=== PATIENT | female | born 1950 | race Caucasian/White ===

== ENCOUNTER 2023-07-26 11:19 | Outpatient (AMB) | payer MEDICARE, OTHER, SELFPAY ==
[2023-07-26 11:24] VITALS: BP 132/80; PULSE 73; O2SAT 97; BMI 25.7
--- NOTE | 2023-07-26 11:24 | HO.NEPHOV_ITS ---
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 She is 73 years of age and had end-stage renal disease secondary to hypertensive nephropathy. She has history of cardiomyopathy and dyslipidemia as well as prior subdural hematoma needing by hole craniotomy. She underwent a disease donor renal transplant on 09/07/2022. Induction was done using Campath and Solu-Medrol. She was on hemodialysis for 2 years prior to her transplant. Recipient CMV was negative/ EBV positive/BK positive. Donor was CMV positive, hepatitis C core antibody positive, toxoplasma positive. She had been on and a cover. She used to take Atovaquone until February of 2023. She is on Valcyte which is meant to be discontinued on 07 of September this year. She had a PRA of 0. She has been having some pain in the right flank for which she underwent imaging studies which were unrevealing as per the patient. She had taken Flexeril with improvement but has been having recurrence of the symptoms. She has an appointment to see pain management as well as orthopedic surgeons. She has no fever, chills, rigors, hematuria, dysuria, pedal edema, chest pain, shortness of breath, tremor, new skin rashes or any joint swellings. She is compliant with her medications. She has no history of any rejections. She has been having insomnia for which she has tried multiple medications with no major effect as per her. [facility] Medical History (Updated 07/24/23 @ 15:38 by Gabriela Oconnell MA) Disorder of SI (sacroiliac) joint Hypokalemia Hypertension GERD (gastroesophageal reflux disease) Diabetes mellitus Acute kidney injury Surgical History History of angioplasty Family History Father Hypertension Mother Heart disease Hypertension Social History (Updated 07/26/23 @ 11:33 by Gabriela Oconnell MA) Alcohol intake: current Patient Tobacco Use Status: Never used Tobacco Physical Exam Vital Signs: Last Vital Signs Pulse 73 07/26/23 11:24 BP 132/80 07/26/23 11:24 Pulse Ox 97 07/26/23 11:24 Oxygen Delivery Method Room Air 07/26/23 11:24 BMI result Body Mass Index 25.7 Const General: comfortable and no acute distress Orientation/consciousness: patient oriented x3 HEENT Head: Yes normocephalic Mouth: Normal oral and palatal mucosa present Eyes EOM: EOMs intact bilaterally Neck Neck: Yes supple Resp Auscultation: clear to auscultation bilaterally Cardio Jugular venous distension: no JVD Rate: regular rate GI Palpation (GI): Soft to palpation Auscultation: normal bowel sounds General: Yes no CVA tenderness Back/Spine/Pelvis Back: no CVA tenderness Skin General skin exam: no rashes or lesions noted Neuro General: patient oriented x3 and moves all extremities Extrem General: Yes no pedal edema Results Reviewed Nephrology Results: No Data to Display Assessment & Plan Assessment & Plan (1) Renal transplant recipient: Code(s): Z94.0 - Kidney transplant status Category: Surgical Plan Her graft function has been stable. Her last serum creatinine has been close to 1. Her DSA has been negative. Her Trugraf was [place]. Her urine protein creatini ne ratio was within normal limits. She had it transplant Doppler which did not show any renal artery stenosis. She is on Envarsus monotherapy. She does not have any side effects from it. She had history of BK viremia and her levels have been kept low. She had a CMV high-risk donor positivity with the recipient being negative, maintained on Valcyte 450 mg daily to continue until end of August. Her BK PCR has been improving. Her hepatitis-B PCR has been negative. Her last CMV and EBV PCR has been negative as well. Blood pressure is very well controlled on the current medication regimen. Has phosphorus , magnesium and calcium has been normal. She is on intake over which we plan to continue at least for a year. Her last hepatitis-B PCR and hepatitis C PCR was negative. She can continue Flexeril and follow-up with pain management and orthopedic surgeons. Follow-up lab work was ordered. I did not make any medication changes. Follow-up appointment given. Answered all questions Orders: Orders Blood Urea Nitrogen Today Z94.0 - Kidney transplant status Electrolytes Today Z94.0 - Kidney transplant status Calcium Today Z94.0 - Kidney transplant status Phosphorus Today Z94.0 - Kidney transplant status Aspartate Amino Transferase Today Z94.0 - Kidney transplant status Alanine Aminotransferase Today Z94.0 - Kidney transplant status Other Ref Test - Misc 1 Day Z94.0 - Kidney transplant status Complete Blood Count Auto Diff Today Z94.0 - Kidney transplant status Creatinine Today Z94.0 - Kidney transplant status Magnesium Today Z94.0 - Kidney transplant status Tacrolimus Prograf Today Z94.0 - Kidney transplant status Protein Creatinine Ratio, Ur Today Z94.0 - Kidney transplant status Other Ref Test - Misc Today Z94.0 - Kidney transplant status Medications: New cyclobenzaprine 5 mg PO BEDTIME 30 tabs 3RF 30 days Coding Level of Care Code New Pt Level 4 (20141) Diagnoses Renal transplant recipient Z94.0
== END 2023-07-26 12:06 | disposition home or self-care (01) ==
PROVIDERS: PCP Physician Assistant; Visit Provider Internal Medicine Nephrology
DX: Z94.0 Kidney transplant status (principal)
CPT/HCPCS: 99204

== ENCOUNTER 2023-10-02 11:42 | Outpatient (AMB) | payer MEDICARE, OTHER, SELFPAY ==
--- NOTE | 2023-10-02 12:06 | HO.NEPHOV_ITS ---
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 She has history of cardiomyopathy and dyslipidemia as well as prior subdural hematoma needing by hole craniotomy. She underwent a disease donor renal transplant on 09/07/2022. Induction was done using Campath and Solu-Medrol. She was on hemodialysis for 2 years prior to her transplant. Recipient CMV was negative/ EBV positive. Donor was CMV positive, hepatitis C core antibody positive, toxoplasma positive. She had been on and a cover. She used to take Atovaquone until February of 2023. She is on Valcyte which is meant to be discontinued on 07 of September this year. She had a PRA of 0. She has been having some pain in the right flank for which she underwent imaging studies which were unrevealing as per the patient. She had taken Flexeril with improvement but has been having recurrence of the symptoms. She has an appointment to see pain management as well as orthopedic surgeons. She has no fever, chills, rigors, hematuria, dysuria, pedal edema, chest pain, shortness of breath, tremor, new skin rashes or any joint swellings. She is compliant with her medications. She has no history of any rejections. She has BK virus in the urine [facility] Medical History (Updated 10/02/23 @ 12:29 by Holland Carmen MD) Disorder of SI (sacroiliac) joint Hypokalemia Hypertension GERD (gastroesophageal reflux disease) Diabetes mellitus Acute kidney injury Surgical History History of angioplasty Family History Father Hypertension Mother Heart disease Hypertension Social History Alcohol intake: current Patient Tobacco Use Status: Never used Tobacco Review of Systems Const All systems reviewed & are unremarkable except as noted in HPI and below Physical Exam Vital Signs: Last Vital Signs BP 110/68 10/02/23 12:08 BMI result Body Mass Index 25.6 Const General: comfortable and no acute distress Orientation/consciousness: patient oriented x3 HEENT Head: Yes normocephalic Mouth: Normal oral and palatal mucosa present Eyes EOM: EOMs intact bilaterally Neck Neck: Yes supple Resp Auscultation: clear to auscultation bilaterally Cardio Jugular venous distension: no JVD Rate: regular rate GI Palpation (GI): Soft to palpation Auscultation: normal bowel sounds General: Yes no CVA tenderness Back/Spine/Pelvis Back: no CVA tenderness Skin General skin exam: no rashes or lesions noted Neuro General: patient oriented x3 and moves all extremities Extrem General: Yes no pedal edema Results Reviewed Nephrology Results: No Data to Display Assessment & Plan Assessment & Plan (1) Renal transplant recipient: Code(s): Z94.0 - Kidney transplant status Category: Surgical (2) Hypertension: Code(s): I10 - Essential (primary) hypertension Category: Medical Qualifiers: Hypertension type: primary hypertension Qualified Code(s): I10 - Essential (primary) hypertension (3) BK viremia: Code(s): B34.8 - Other viral infections of unspecified site Category: Medical Plan Her graft function has been stable. Her last serum creatinine has been close to 1. Her DSA has been negative. Her Trugraf was [place]. Her urine protein creatinine ratio was within normal limits. She had it transplant Doppler which did not show any renal artery stenosis. She is on Envarsus monotherapy. She does not have any side effects from it. She had history of BK viremia and her levels have been kept low. I reduced her Envarsus to 3.5 mg daily. She had a CMV high-risk donor positivity with the recipient being negative, maintained on Valcyte 450 mg daily to continue until end of August. Her BK PCR had been improving. Her hepatitis-B PCR has been negative. Her last CMV and EBV PCR has been negative as well. Blood pressure is very well controlled on the current medication regimen. Has phosphorus , magnesium and calcium has been normal. Her last hepatitis-B PCR and hepatitis C PCR was negative. Follow-up lab work was ordered. I did not make any other medication changes. Follow-up appointment given. Answered all questions Orders: Orders Complete Blood Count Auto Diff 2 Months B34.8 - Other viral infections of unspecified site, I10 - Essential (primary) hypertension, Z94.0 - Kidney transplant status Electrolytes 2 Months B34.8 - Other viral infections of unspecified site, I10 - Essential (primary) hypertension, Z94.0 - Kidney transplant status Calcium 2 Months B34.8 - Other viral infections of unspecified site, I10 - Essential (primary) hypertension, Z94.0 - Kidney transplant status Magnesium 2 Months B34.8 - Other viral infections of unspecified site, I10 - Essential (primary) hypertension, Z94.0 - Kidney transplant status Tacrolimus Prograf 2 Months B34.8 - Other viral infections of unspecified site, I10 - Essential (primary) hypertension, Z94.0 - Kidney transplant status Creatinine 2 Months B34.8 - Other viral infections of unspecified site, I10 - Essential (primary) hypertension, Z94.0 - Kidney transplant status Blood Urea Nitrogen 2 Months B34.8 - Other viral infections of unspecified site, I10 - Essential (primary) hypertension, Z94.0 - Kidney transplant status Phosphorus 2 Months B34.8 - Other viral infections of unspecified site, I10 - Essential (primary) hypertension, Z94.0 - Kidney transplant status Other Ref Test - Misc 2 Months B34.8 - Other viral infections of unspecified site, I10 - Essential (primary) hypertension, Z94.0 - Kidney transplant status Tacrolimus Prograf 1 Month B34.8 - Other viral infections of unspecified site, I10 - Essential (primary) hypertension, Z94.0 - Kidney transplant status Coding Level of Care Code Est Pt Level 4 (53578) Diagnoses Renal transplant recipient Z94.0 Primary hypertension I10 Hypertension type: primary hypertension BK viremia B34.8
[2023-10-02 12:08] VITALS: BP 110/68; BMI 25.6
== END 2023-10-02 12:31 | disposition home or self-care (01) ==
PROVIDERS: PCP Physician Assistant; Visit Provider Internal Medicine Nephrology
DX: Z94.0 Kidney transplant status (principal); I10 Essential (primary) hypertension; B34.8 Other viral infections of unspecified site
CPT/HCPCS: 99214

== ENCOUNTER 2023-11-06 11:44 | Outpatient (REF) | payer MEDICARE, OTHER, SELFPAY | END 2023-11-06 11:45 | disposition home or self-care (01) | LOC: HO.HKASLDS 11:44 | PROVIDERS: Visit Provider Internal Medicine Nephrology | DX: I10 Essential (primary) hypertension (principal); B34.8 Other viral infections of unspecified site; Z94.0 Kidney transplant status | CPT/HCPCS: 36415; 80197 ==

== ENCOUNTER 2023-12-04 14:40 | Outpatient (REF) | payer MEDICARE, OTHER, SELFPAY ==
[2023-12-04 18:06] LABS: MANUAL DIFF FLAG NO
[2023-12-04 18:39] LABS: Basophils Percent Auto 0.4 % (0-2); Eosinophils Absolute Auto 0.1 X10*3/uL (0.0-0.4); Eosinophils Percent Auto 1.9 % (0-4); Hematocrit 31.6 % (37.0-47.0); Hemoglobin 10.4 g/dl (12.0-16.0); Imm Gran Abs Auto 0.01 X10*3/uL (0.00-0.03); Imm Gran Pct Auto 0.2 % (0.0-0.4); Lymphocytes Absolute Auto 1.2 X10*3/uL (1.2-4.9); Lymphocytes Percent Auto 25.1 % (20-40); Mean Corpuscular HGB Conc 32.9 g/dl (31.0-35.0); Mean Corpuscular Hemoglobin 30.6 pg (27.0-33.0); Mean Corpuscular Volume 92.9 fL (80.0-98.0); Mean Platelet Volume 9.6 fL (9.4-12.3); Monocytes Absolute Auto 0.6 X10*3/uL (0.1-1.2); Monocytes Percent Auto 12.7 % (2-11); Neutrophils Absolute Auto 2.8 x10*3/uL (2.0-8.3); Neutrophils Percent Auto 59.7 % (45-73); Platelet Count 208 X10*3/uL (160-400); Red Cell Distribution Width 13.4 % (11.0-16.0); White Blood Count 4.7 X10*3/uL (4.8-10.8)
[2023-12-04 18:57] LABS: Anion Gap 8 (12-20); Blood Urea Nitrogen 24 mg/dL (9-16); Calcium 10.6 mg/dL (8.4-10.2); Carbon Dioxide 24 mmol/L (22-29); Chloride 109 mmol/L (96-108); Estimated Glomerular Filt Rate > 60; Magnesium 2.1 mg/dL (1.6-2.6); Phosphorus 2.5 mg/dL (2.7-4.5); Potassium 4.2 mmol/L (3.3-5.1); Sodium 137 mmol/L (135-145)
[2023-12-05 10:43] LABS: Tacrolimus Prograf 3.4 mcg/L
[2023-12-07 19:34] LABS: BK Virus DNA QL Urine Detected (Not Detected)
== END 2023-12-04 14:41 | disposition home or self-care (01) ==
LOC: HO.HKASLDS 14:40
PROVIDERS: Visit Provider Internal Medicine Nephrology
DX: I10 Essential (primary) hypertension (principal); B34.8 Other viral infections of unspecified site; Z94.0 Kidney transplant status
CPT/HCPCS: 36415; 80051; 80197; 82310; 82565; 83735; 84100; 84520; 85025; 87798

== ENCOUNTER 2023-12-18 14:35 | Outpatient (AMB) | payer MEDICARE, OTHER, SELFPAY ==
--- NOTE | 2023-12-18 14:51 | HO.NEPHOV_ITS ---
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 She has history of cardiomyopathy and dyslipidemia as well as prior subdural hematoma needing by hole craniotomy. She underwent a disease donor renal transplant on 09/07/2022. Induction was done using Campath and Solu-Medrol. She was on hemodialysis for 2 years prior to her transplant. Recipient CMV was negative/ EBV positive. Donor was CMV positive, hepatitis C core antibody positive, toxoplasma positive. She had been on and a cover. She used to take Atovaquone until February of 2023. She is on Valcyte which is meant to be discontinued on August. She had a PRA of 0. She has no fever, chills, rigors, hematuria, dysuria, pedal edema, chest pain, shortness of breath, tremor, new skin rashes or any joint swellings. She is compliant with her medications. She has no history of any rejections. She has BK virus in the urine [facility] Medical History (Updated 10/02/23 @ 12:29 by Holland Carmen MD) Disorder of SI (sacroiliac) joint Hypokalemia Hypertension GERD (gastroesophageal reflux disease) Diabetes mellitus Acute kidney injury Surgical History History of angioplasty Family History Father Hypertension Mother Heart disease Hypertension Social History Alcohol intake: current Patient Tobacco Use Status: Never used Tobacco Review of Systems Const All systems reviewed & are unremarkable except as noted in HPI and below Physical Exam Vital Signs: Last Vital Signs Pulse 59 12/18/23 14:52 BP 184/80 H 12/18/23 14:52 Pulse Ox 97 12/18/23 14:52 Oxygen Delivery Method Room Air 12/18/23 14:52 BMI result Body Mass Index 25.7 Results Reviewed Nephrology Results: Hgb 10.4 g/dl (12.0-16.0) L 12/04/23 WBC 4.7 X10*3/uL (4.8-10.8) L 12/04/23 Plt Count 208 X10*3/uL (160-400) 12/04/23 Sodium 137 mmol/L (135-145) 12/04/23 Potassium 4.2 mmol/L (3.3-5.1) 12/04/23 Chloride 109 mmol/L (96-108) H 12/04/23 Carbon Dioxide 24 mmol/L (22-29) 12/04/23 BUN 24 mg/dL (9-16) H 12/04/23 Creatinine 0.88 mg/dL (0.5-1.4) 12/04/23 Calcium 10.6 mg/dL (8.4-10.2) H 12/04/23 Phosphorus 2.5 mg/dL (2.7-4.5) L 12/04/23 Assessment & Plan Assessment & Plan (1) Renal transplant recipient: Code(s): Z94.0 - Kidney transplant status Category: Surgical (2) BK viremia: Code(s): B34.8 - Other viral infections of unspecified site Category: Medical (3) Hypertension: Code(s): I10 - Essential (primary) hypertension Category: Medical Qualifiers: Hypertension type: primary hypertension Qualified Code(s): I10 - Essential (primary) hypertension Plan Her graft function has been stable. Her last serum creatinine has been close to 1. Her DSA has been negative. Her Trugraf was [place]. Her urine protein creatinine ratio was within normal limits. She had it transplant Doppler which did not show any renal artery stenosis. She is on Envarsus monotherapy. She does not have any side effects from it. She had history of BK viremia and her levels have been kept low. I increased her Envarsus to 4 mg daily. Repeat levels ordered for next week. She had a CMV high-risk donor positivity with the recipient being negative, maintained on Valcyte 450 mg daily to continue until end of August. Her BK PCR had been improving. Her hepatitis-B PCR has been nega tive. Her last CMV and EBV PCR has been negative as well. Blood pressure is very well controlled on the current medication regimen at home. She is off calcium supplements. Her last hepatitis-B PCR and hepatitis C PCR was negative. Follow-up lab work was ordered. I did not make any other medication changes. Follow-up appointment given. Answered all questions Orders: Orders Tacrolimus Prograf 1 Week B34.8 - Other viral infections of unspecified site, I10 - Essential (primary) hypertension, Z94.0 - Kidney transplant status Creatinine 2 Months Z94.0 - Kidney transplant status Blood Urea Nitrogen 2 Months Z94.0 - Kidney transplant status Electrolytes 2 Months Z94.0 - Kidney transplant status Calcium 2 Months Z94.0 - Kidney transplant status Other Ref Test - Misc 2 Months B34.8 - Other viral infections of unspecified site, Z94.0 - Kidney transplant status Tacrolimus Prograf 2 Months B34.8 - Other viral infections of unspecified site, I10 - Essential (primary) hypertension, Z94.0 - Kidney transplant status Complete Blood Count Auto Diff 2 Months B34.8 - Other viral infections of unsp ecified site, I10 - Essential (primary) hypertension, Z94.0 - Kidney transplant status Medications: New doxazosin 4 mg PO DAILY 90 tabs 3RF Changed From tacrolimus XR (Envarsus XR) 2 mg PO DAILY To tacrolimus XR (Envarsus XR) 2 mg (2 x 1 mg) PO DAILY 90 days 180 tabs 3RF From tacrolimus XR (Envarsus XR) 1.5 mg PO DAILY To tacrolimus XR (Envarsus XR) 1.5 mg (2 x 0.75 mg) PO DAILY 90 days 180 tabs 3RF From losartan 50 mg PO BID To losartan 50 mg PO BID 90 days 180 tabs 3RF Coding Level of Care Code Est Pt Level 4 (75205) Diagnoses Renal transplant recipient Z94.0 BK viremia B34.8 Primary hypertension I10 Hypertension type: primary hypertension
[2023-12-18 14:52] VITALS: BP 184/80; PULSE 59; O2SAT 97; BMI 25.7
== END 2023-12-18 15:22 | disposition home or self-care (01) ==
PROVIDERS: PCP Physician Assistant; Visit Provider Internal Medicine Nephrology
DX: Z94.0 Kidney transplant status (principal); B34.8 Other viral infections of unspecified site; I10 Essential (primary) hypertension
CPT/HCPCS: 99214

== ENCOUNTER → 2023-12-18 14:35 | Outpatient (BNVA) | payer MEDICARE, OTHER, SELFPAY | PROVIDERS: PCP Physician Assistant; Visit Provider Internal Medicine Nephrology | DX: I10 Essential (primary) hypertension (principal); B34.8 Other viral infections of unspecified site; Z94.0 Kidney transplant status | CPT/HCPCS: 99212 ==

== ENCOUNTER 2023-12-27 10:47 | Outpatient (REF) | payer MEDICARE, OTHER, SELFPAY | END 2023-12-27 10:48 | disposition home or self-care (01) | LOC: HO.HKASLDS 10:47 | PROVIDERS: Visit Provider Internal Medicine Nephrology | DX: I10 Essential (primary) hypertension (principal); B34.8 Other viral infections of unspecified site; Z94.0 Kidney transplant status | CPT/HCPCS: 36415; 80197 ==

== ENCOUNTER 2024-04-22 10:36 | Outpatient (AMB) | payer MEDICARE, OTHER, SELFPAY ==
--- NOTE | 2024-04-22 11:02 | HO.NEPHOV_ITS ---
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 She has history of cardiomyopathy and dyslipidemia as well as prior subdural hematoma needing by hole craniotomy. She underwent a disease donor renal transplant on 09/07/2022. Induction was done using Campath and Solu-Medrol. She was on hemodialysis for 2 years prior to her transplant. Recipient CMV was negative/ EBV positive. Donor was CMV positive, hepatitis C core antibody positive, toxoplasma positive. She had been on and a cover. She used to take Atovaquone until February of 2023. She is on Valcyte which is meant to be discontinued on August. She had a PRA of 0. She has no fever, chills, rigors, hematuria, dysuria, pedal edema, chest pain, shortness of breath, tremor, new skin rashes or any joint swellings. She is compliant with her medications. She has no history of any rejections. She has BK virus in the urine [facility] Medical History (Updated 10/02/23 @ 12:29 by Holland Carmen MD) Disorder of SI (sacroiliac) joint Hypokalemia Hypertension GERD (gastroesophageal reflux disease) Diabetes mellitus Acute kidney injury Surgical History History of angioplasty Family History Father Hypertension Mother Heart disease Hypertension Social History Alcohol intake: current Patient Tobacco Use Status: Never used Tobacco Review of Systems Const All systems reviewed & are unremarkable except as noted in HPI and below Physical Exam Vital Signs: Last Vital Signs BP 160/84 H 04/22/24 11:05 BMI result Body Mass Index 27.9 Const General: comfortable and no acute distress Orientation/consciousness: patient oriented x3 HEENT Head: Yes normocephalic Mouth: Normal oral and palatal mucosa present Eyes EOM: EOMs intact bilaterally Neck Neck: Yes supple Resp Auscultation: clear to auscultation bilaterally Cardio Jugular venous distension: no JVD Rate: regular rate GI Palpation (GI): Soft to palpation Auscultation: normal bowel sounds General: Yes no CVA tenderness Back/Spine/Pelvis Back: no CVA tenderness Skin General skin exam: no rashes or lesions noted Neuro General: patient oriented x3 and moves all extremities Extrem General: Yes no pedal edema Results Reviewed Nephrology Results: Hgb 10.5 g/dl (12.0-16.0) L 04/16/24 WBC 4.8 X10*3/uL (4.8-10.8) 04/16/24 Plt Count 170 X10*3/uL (160-400) 04/16/24 Sodium 136 mmol/L (135-145) 04/16/24 Potassium 4.5 mmol/L (3.3-5.1) 04/16/24 Chloride 112 mmol/L (96-108) H 04/16/24 Carbon Dioxide 22 mmol/L (22-29) 04/16/24 BUN 27 mg/dL (9-16) H 04/16/24 Creatinine 0.89 mg/dL (0.5-1.4) 04/16/24 Calcium 10.4 mg/dL (8.4-10.2) H 04/16/24 Phosphorus 2.5 mg/dL (2.7-4.5) L 12/04/23 Assessment & Plan Assessment & Plan (1) Renal transplant recipient: Code(s): Z94.0 - Kidney transplant status Category: Surgical (2) BK viremia: Code(s): B34.8 - Other viral infections of unspecified site Category: Medical (3) Hypertension: Code(s): I10 - Essential (primary) hypertension Category: Medical Qualifiers: Hypertension type: primary hypertension Qualified Code(s): I10 - Essential (primary) hypertension Plan Her graft function has been stable. Her last serum creatinine has been close to 0.8. Her DSA has been negative. Her Trugraf was [place]. Her urine protein creatinine ratio was within normal limits. She had it transplant Doppler which did not show any renal artery stenosis. She is on Envarsus monotherapy. She does not have any side effects from it. She had history of BK viremia and her levels have been kept low. I increased her Envarsus to 4 mg daily. She had a CMV high-risk donor positivity with the recipient being negative, maintained on Valcyte 450 mg daily to continue until end of August. Her BK PCR had been improving. Her hepatitis-B PCR has been negative. Her last CMV and EBV PCR has been negative as well. Blood pressure is very well controlled on the current medication regimen at home. She is off calcium supplements. Her last hepatitis- B PCR and hepatitis C PCR was negative. Follow-up lab work was ordered. I did not make any other medication changes. Follow-up appointment given. Answered all questions Orders: Orders Other Ref Test - Misc 3 Months B34.8 - Other viral infections of unspecified site, I10 - Essential (primary) hypertension, Z94.0 - Kidney transplant status Tacrolimus Prograf 3 Months B34.8 - Other viral infections of unspecified site, I10 - Essential (primary) hypertension, Z94.0 - Kidney transplant status Electrolytes 3 Months B34.8 - Other viral infections of unspecified site, I10 - Essential (primary) hypertension, Z94.0 - Kidney transplant status Calcium 3 Months B34.8 - Other viral infections of unspecified site, I10 - Essential (primary) hypertension, Z94.0 - Kidney transplant status Magnesium 3 Months B34.8 - Other viral infections of unspecified site, I10 - Essential (primary) hypertension, Z94.0 - Kidney transplant status Other Ref Test - Misc 2 Months B34.8 - Other viral infections of unspecified site, I10 - Essential (primary) hypertension, Z94.0 - Kidney transplant status Creatinine 3 Months B34.8 - Other viral infections of unspecified site, I10 - Essential (primary) hypertension, Z94.0 - Kidney transplant status Blood Urea Nitrogen 3 Months B34.8 - Other viral infections of unspecified site, I10 - Essential (primary) hypertension, Z94.0 - Kidney transplant status Phosphorus 3 Months B34.8 - Other viral infections of unspecified site, I10 - Essential (primary) hypertension, Z94.0 - Kidney transplant status Coding Level of Care Code Est Pt Level 4 (79336) Diagnoses Renal transplant recipient Z94.0 BK viremia B34.8 Primary hypertension I10 Hypertension type: primary hypertension
[2024-04-22 11:05] VITALS: BP 160/84; BMI 27.9
--- OUTSIDE RECORDS SUMMARY | 2024-04-22 11:49 | XMS_ITS | Clinical Summary ---
Author Organization [facility] Address [address] [place] [address] Care Team Providers Care Bending Machine Set Up Operator Name Role Phone Oneida Marroquin MD Primary Care Provider [phone] Encounters Date Type Department Care Team Description 02/21/2024 8:15 AM EST - 02/21/2024 8:30 AM EST Surgery [facility] Eye Surgery [place] [phone] Richard Willis MD CAT W/IOL LENSX ORA 02/21/2024 6:46 AM EST - 02/21/2024 11:59 PM EST Hospital Encounter [place] [id number] Richard Willis MD Discharge Disposition: Home or Self Care 02/20/2024 Travel 01/31/2024 9:30 AM EST - 01/31/2024 9:45 AM EST Surgery [facility] Surgery [place] [phone] Richard Willis MD CAT W/IOL LENSX ORA 01/31/2024 7:54 AM EST - 01/31/2024 11:59 PM EST Hospital Encounter [place] [id number] Richard Willis MD Discharge Disposition: Home or Self Care 01/30/2024 Travel from Last 3 Months Social History Tobacco Use Types Packs/Day Years Used Date Smoking Tobacco: Never Assessed Sex and Gender Information Value Date Recorded Sex Assigned at Female 01/31/2024 7:55 AM EST Gender Identity Female 01/31/2024 7:55 AM EST Sexual Orientation Heterosexual (straight) 01/30 7:55 AM EST Plan of Treatment Health Maintenance Due Date Last Done Comments Hepatitis C Virus Screening 1950 DTaP/Tdap/Td Vaccines (1 - Tdap) 1969 Pneumococcal Vaccines 50+ (1 of 2 - PCV) 1969 Hepatitis B Vaccines (1 of 3 - Risk Dialysis 4-dose series) 1970 Mammogram 1990 Colonoscopy 1995 Zoster (Shingles) Vaccine (1 of 2) 01/26/2000 DXA Bone Density (Females,Ag es 65 and older) 2015 Influenza Vaccine 10/11/2023 12/03/2016, , 02/04/2014 COVID-19 Vaccine (2023-2 5 season) 2023 12/27/2021, 08/13/2021, 12/28/2020, Additional history exists RSV Vaccine 60 years and old er and Patients (1 - 1-dose 75+ series) 2025 Medical Devices Implanted Type Area Wind Turbine Performance Engineer Device Identifier Shelf Expiration Date Model / Serial / Lot [id number] Lens Iol +24.5 Luis Alberto Mod C 13mm 6mm Posterior Chamber 1 Pc - [id number] Implanted:Qty: 1 on 01/31/2024 by Richard Willis MD at [facility] [place], [place] [employer] [id number] / [id number] / [id number] Lens Iol +23.5 Luis Alberto Mod C 13mm 6mm Posterior Chamber 1 Pc - [id number] Implanted:Qty: 1 on 02/21/2024 by Richard Willis MD at [facility] [place], [place] [employer] [id number] / [id number] / Procedures Procedure Name Priority Date/Time Associated Diagnosis Comments TN XCAPSL CTRC RMVL INSJ IO LENS PROSTH W/O ECP 02/21/2024 8:15 AM EST Nuclear sclerotic cataract of right eye HX PHYSICIAN ORDER 02/21/2024 TN XCAPSL CTRC RMVL INSJ IO LENS PROSTH W/O ECP 01/31/2024 9:30 AM EST Nuclear sclerotic cataract of left eye HX PHYSICIAN ORDER 01/31/2024 from Last 3 Months Results * Physician Order (02/21/2024) Only the most recent of2 resultswithin the time period is included. Narrative 02/21/2024 Ordered by an unspecified provider. Generic Provider HX AMB PROCEDURES from Last 3 Months Care Teams Bending Machine Set Up Operator Relationship Specialty Start Date End Date Oneida Marroquin MD [address] [place] [id number] PCP - General Family Medicine 02/22/23
--- OUTSIDE RECORDS SUMMARY | 2024-04-22 11:49 | XMS_ITS | Encounter Summary ---
Author Organization [facility] Address [address] [facility] [address] [place] [address] Phone Care Team Providers Care Embossing Unit Operator Name Role Phone Stephanie Morales PA-C Primary Care Provider + Reason for Visit * Reason Comments Med Refill Encounter Details Date Type Department Care Team (Late st Contact Info) Description 06/05/2022 Refill [facility] [address] [place] [id number] Holland Carmen MD Social History Tobacco Use Types Packs/Day Years Used Date Smoking Tobacco: Never Smokeless Tobacco: Never Alcohol Use Standard Drinks/Week Comments Yes 0 (1 standard drink = 0.6 oz pure alcohol) Alcoholic Drinks/day: 1-2 drinks per day Comments Unknown Sex and Gender Information Value Date Recorded Sex Assigned at Not on file Legal Sex Female 5:00 PM EST Gender Identity Not on file Sexual Orientation Not on file documented as of this encounter Plan of Treatment Not on file documented as of this encounter Visit Diagnoses Not on filedocumented in this encounter Care Teams Embossing Unit Operator Relationship Specialty Start Date End Date Stephanie Morales PA-C [address] [place] [id number] PCP - General Physician Frame Aligner 06/13/23 documented as of this encounter
--- OUTSIDE RECORDS SUMMARY | 2024-04-22 11:49 | XMS_ITS | Encounter Summary ---
Author Organization [facility] Address [address] [address] [facility] [address] [place] [address] Phone Care Team Providers Care Bi Architect Name Role Phone Stephanie Morales PA-C Primary Care Provider + Reason for Visit * Reason Comments Med Refill Encounter Details Date Type Department Care Team (Late st Contact Info) Description 06/19/2022 Refill [facility] [address] [place] [phone] Holland Carmen MD Social History Tobacco Use [...] on filedocumented in this encounter Care Teams Bi Architect Relationship Specialty Start Date End Date Stephanie Morales PA-C [address] [place] [id number] PCP - General Physician Employee Relations Manager 06/13/23 documented as of this encounter
--- OUTSIDE RECORDS SUMMARY | 2024-04-22 11:49 | XMS_ITS | Continuity of Care Document ---
Author Organization [facility] Address [address] [place] [address] Phone Care Team Providers Care Vice President Digital Strategist Name Role Phone Richard Willis MD Unavailable Unavailable Allergies, Adverse Reactions, Alerts Substance Reaction Status Criticality codeine Active No Information trimethoprim Active No Information sulfamethoxazole Active No Informat ion Medications Medication Instructions Dosage Effective Dates (start - stop) Status Comments ketorolac 0.5 % eye drops instill 1 drop by ophthalmic route 2 times every day into operative eye begin 3 days prior to surgery - Active prednisolone acetate 1 % eye drops,suspension instill 1 drop by ophthalmic route 2 times every day into operative eye begin 3 days prior to surgery - Active moxifloxacin 0.5 % eye drops instill 1 drop by ophthalmic route 4 times every day into operative eye, begin 3 day prior to surgery - Active Envarsus XR 1 mg tablet,extended release - Active atorvastatin 40 mg tablet - Active zolpidem 10 mg tablet TAKE 1 TABLET BY MOUTH AT BEDTIME NEEDED FOR INSOMNIA - Active Envarsus XR 0.75 mg tablet,extended release - Active doxazosin 4 mg tablet - Acti ve losartan 50 mg tablet - Acti ve tizanidine 4 mg tablet - Act carlos folic acid 400 mcg tablet TAKE 1 TABLET BY MOUTH EVERY DAY - Active levetiracetam 750 mg tablet - Active magnesium oxide 400 mg (241.3 mg magnesium) tablet - Active cinacalcet 30 mg tablet TAKE 1 TABLET BY MOUTH 1 TIME EACH DAY. - Active acetaminophen 500 mg tablet TAKE 1 TABLET BY MOUTH EVERY 6 HOURS NEEDED FOR PAIN - Active chlorhexidine gluconate 0.12 % mouthwash RINSE WITH 15 ML, HOLD X 30 SECONDS AND EXPECTORATE TWICE DAILY X 4 DAYS. START DAY AFTER SURGERY - Active entecavir 0.5 mg tablet - Ac tive valganciclovir 450 mg tablet - Active cyclobenzaprine 5 mg tablet - Active lorazepam 0.5 mg tablet TAKE 1 TABLET BY MOUTH AT NIGHT NEEDED ANXIETY - Active zolpidem 5 mg tablet TAKE 1 TABLET BY MOUTH EVERY DAY AT BEDTIME NEEDED FOR SLEEP - Active cetirizine 5 mg tablet - Act carlos pramipexole 0.25 mg tablet - Active furosemide 20 mg tablet TAKE 1 TABLET (2 0 MG TOTAL) BY MOUTH ONE TIME EACH DAY - Active carvedilol 6.25 mg tablet PLEASE SEE ATTACHED FOR DETAILED DIRECTIONS - Active Procedures Procedure Date [employer] Fee IOL Master Calculation RT Post Op Visit [employer] Fee Ophthalmic IOL Master SCODI--Retina GIS APPLICATION DEVELOPER Moderate MDM Advance Directives Directive Yes / No Effective Date File Name No Information Encounters Encounter Description Practice Location Reason(s) For Visit Diagnoses Date Provider Providers Copied on Encounter [facility], [address], [place], [address], [place] tel:[phone] [place] No Information 4 Alba Ramos. [address] [place], [place], [id number] , . tel: [phone] [facility], [address] [place] [address], [facility], tel: [phone] [place] No Information 4 Alba Ramos. [address] [place] [address], [id number] , . tel: [phone] Referring Provider: James Moreira OD E, [address] [place] [address], [address]. tel:[phone] [facility], [address] [place] [address], [facility], tel:[phone] [place] s/p PCIOL OS (chief complaint) Combined forms of age-related cataract, right eyePseudophakia of left eyeRegular astigmatism, right eye 4 Alba Ramos. [address] [place] [address], [id number] , . tel: [phone] Referring Provider: Richard Willis, [address] [place] [address], [address] . tel:[phone] [facility], [address] [place] [address], [facility], tel:[phone] [place] No Information 4 Alba Ramos. [address] [place] [address], [id number] , . tel: [phone] Referring Provider: James Moreira OD E, [address] [place] [address], [address]. tel:[phone] GIS APPLICATION DEVELOPER Moderate MDM [facility], [address] [place] [address], [facility], tel:[phone] [place] blurry vision (chief complaint) Combined forms of age-related cataract, bilateralHypertens carlos retinopathy, bilateralRegular astigmatism, bilateral 4 Alba Ramos. [address] [place] [address], [id number] , . tel: [phone] Referring Provider: Richard Willis, [address] [facility], [place], [address] . tel:[phone] Family History Family Member Type Diagnosis Age At Onset Problem Family history of Arthritis Payers Payer name Insurance type Covered constitution party ID Authoriza tion(s) No Information Social History Type Description Quantity Date Captured Comments Alcohol Use Details Unknown Caffeine Use Details Unknown Tobacco Use Status No Information Smoking Status No Information Sex Female Chief Complaint And Reason For Visit No Information Reason For Referral Reason For Referral No Information History Of Present Illness Encounter Date Complaint History Of Prese nt Illness s/p PCIOL OS The 74 year old patient presents for evaluation of s/p PCIOL OS. Pt reports he is doing well, denies any complaints or concerns regarding OS. Pt denies any pain, states VA OS is improved. Pt using all PO gtts as directed.Pt would like to continue tx OD, will begin pre-op gtts as directed. Pt VA OD could not be improved further with a refraction. blurry vision The 73 year old patient presents for evaluation of blurry vision in the right eye and left eye. Pt referred by Dr. Moreira who was unable to improve pt VA OU further with a refraction. It occurs all the time. The onset was gradual. It affects both near and far vision. The symptom is constant. The condition is significant. Pt reports trouble seeing street signs, poor night V, glares/halos, and hazy/blurred V. Pt having difficulty driving at night. Pt is not using any gtts - denies any pain or discomfort at this time. Functional Status Date Functional Assessmen t No Information Instructions Date Instruction Additional Infor mation Impression/Plan Related to Combi elton forms of age-related cataract, right eye Impression/Plan Related to Regul ar astigmatism, right eye Impression/Plan Related to Pseud ophakia of left eye Impression/Plan Related to Combi elton forms of age-related cataract, bilateral Impression/Plan Related to Regul ar astigmatism, bilateral Impression/Plan Related to Hyper tensive retinopathy, bilateral Assessments Type Assessment Date No Information Patient Care Teams Name Effective Dates (start - stop) Status Members No Information
--- OUTSIDE RECORDS SUMMARY | 2024-04-22 11:49 | XMS_ITS | Clinical Summary ---
Author Organization [facility] Address [address] [place] [address] Phone Care Team Providers Care E Commerce Strategist Name Role Phone Oneida Marroquin MD Primary Care Provider [phone] Allergies Active Allergy Reactions Criticality Noted Date Comments Codeine 11/24/2020 Sulfamethoxazole-Trimethoprim 2020 Medications aspirin 81 mg EC tablet Take 1 Tablet by mouth daily. Active atorvastatin (LIPITOR) 40 mg tablet Take 1 Tablet by mouth daily. Active atovaquone (MEPRON) 750 mg/5 mL suspension Take 10 mL by mouth daily. Active cetirizine (ZyrTEC) 5 mg chewable tablet Take 1 Tablet by mouth. 03/28/2023 Active cholecalciferol (VITAMIN D-3) 25 mcg (1,000 unit) tablet Take 2 Tablets by mouth daily. Active cinacalcet (SENSIPAR) 30 mg tablet Take 1 Tablet by mouth. 02/21/2023 Active cyclobenzaprine (FLEXERIL) 5 mg tablet Take 1 Tablet by mouth. 05/09/2023 05/08/19 Active entecavir (BARACLUDE) 0.5 mg tablet Take 1 Tablet by mouth every morning. Active levETIRAcetam (KEPPRA) 750 mg tablet Take 1 Tablet by mouth 2 times daily. Active losartan (COZAAR) 100 mg tablet daily. 12/16/2022 Active mirtazapine (REMERON) 7.5 mg tablet Take 1 Tablet by mouth daily. Active tacrolimus (Envarsus XR) 0.75 mg extended release tablet Take 1 Tablet by mouth every morning. Active tiZANidine (ZANAFLEX) 4 mg capsule Take 1 Capsule by mouth as needed. Active valGANciclovir (VALCYTE) 450 mg tablet Take 1 Tablet by mouth daily. Active magnesium oxide (MAG-OX) 400 mg (241.3 elemental magnesium) tablet Take 400 mg by mouth. 03/28/2023 03/27/19 25 Active Problems Problem Noted Date Diagnosed Date Cardiomyopathy 03/02/2022 Overview (02/18/2024): - See echo under NSTEMI section Last Assessment & Plan: Patient is euvolemic on exam. Unclear if she will have significant resolution of her LV hypertrophy even after renal transplant but her EF has been normal and she has no heart failure symptoms. Continue current Lasix every other day. See further medication recommendations on her hypertension section. Non-ST elevation AR (NSTEMI) 03/02/2022 Overview (02/18/2024): - I met her in consultation in the hospital in October into early November 2021- she presented with hypoxic respiratory failure ultimately secondary to COVID-19 pneumonia - In the midst of all this, she had high-sensitivity troponins checked and trended and there was an acute rise going from 248 [id number] down to 832 with flat CK but mildly elevated MB fraction; this was also associated with deep T wave inversions in the anterolateral leads making acute coronary syndrome a possibility - An echocardiogram was performed (I have independently reviewed images) it showed moderate, concentric left ventricular hypertrophy with normal LV cavity size and systolic function, normal regional wall motion with ejection fraction of 60 to 65%, normal RV size and systolic function with pronounced RV hypertrophy, severe left atrial enlargement, grade 2 diastolic dysfunction consistent with increased left atrial pressure, evidence of pulmonary hypertension, evidence of high rate atrial pressure, trileaflet aortic valve with mild aortic stenosis with dimensionless index of 0.64 and calculated aortic valve area of 1.8 cm??- 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; alternatively, this could be a hypertrophic myopathy variant though it does not have the classic apical variant appearance - Cath eventually performed on 04/06/2022 showing LVEDP of 8 mmHg with 18 mmHg mean gradient across the aortic valve consistent with mild aortic stenosis, normal left main, minor luminal irregularities of the LAD, normal circumflex, minor luminal irregularities of the RCA - Given hypertrophic left ventricle, proceeded with PYP scan which was negative for TTR amyloid - Also proceeded with a basic AL amyloid screening with SIFE, UIFE, serum free light chains, and urine free light chains- all unremarkable and not suggestive of AL amyloid Last Assessment & Plan: Recurrent symptoms, likely a type II demand mediated phenomenon, continue medical management of subclinical CAD with atorvastatin 40 mg at bedtime, baby aspirin, current carvedilol Primary hypertension 03/02/2022 Overview (02/18/2024): Last Assessment & Plan: Suboptimally controlled in the office but better controlled on prior visits. So as to avoid confusion, I believe that the plastic finisher should be the sole person in charge of blood pressure medication alterations versus her primary care. This is mainly so we avoid any interactions with transplant medications. She has regularly been following with her plastic finisher and during those visits her blood pressures have been steadily in the 130s systolic. I have not made any changes today in spite of elevated blood pressures at today's visit. I suspect this is whitecoat phenomenon. Continue current regimen of losartan 100 mg daily, carvedilol 6.25 twice daily, Lasix 20 mg every other day, doxazosin 4 mg daily TIA (transient ischemic attack) 03/02/2022 Aortic stenosis 02/28/2022 Overview (02/18/2024): Mild / moderate Last Assessment & Plan: See echocardiogram under NSTEMI section, mild most recently and mild by exam to at most moderate, surveillance echo prior to next year's visit Immunizations Name Administration Dates Next Due Pfizer SARS-CoV-2 COVID-19, mRNA, LNP-S, preservative free 12/27/2021,08/13/2021,12/28/2020,2020,04/16/2020 Family History Medical History Relation Name Comments No Known Problems Father No Known Problems Mother Relation Name Status Comments Father Mother Social History Tobacco Use Types Packs/Day Years Used Date Smoking Tobacco: Never Smokeless Tobacco: Never Alcohol Use Standard Drinks/Week Comments Yes 0 (1 standard drink = 0.6 oz pur e alcohol) Comments Unknown Sex and Gender Information Value Date Recorded Sex Assigned at Not on file Legal Sex Female 6:25 PM EST Gender Identity Not on file Sexual Orientation Not on file Obstetrics History Last Filed Vital Signs Vital Sign Reading Time Taken Comments Blood Pressure 155/70 05/24/2023 10:20 AM EDT Pulse 72 05/24/2023 10:20 AM EDT Temperature - - Respiratory Rate - - Oxygen Saturation - - Inhaled Oxygen Concentration - - Weight 62.4 kg (137 lb 9.6 oz) 05/24/2023 10:20 AM EDT Height 157.5 cm (5' 2 ) 05/24/2023 10:20 AM EDT Body Mass Index 25.17 05/24/2023 10:20 AM EDT Plan of Treatment Upcoming Encounters Date Type Department Care Team (Late st Contact Info) Description 05/22/2024 11:00 AM EDT Ancillary Procedure [facility] [address] [facility] [address] [place] [address] Health Maintenance Due Date Last Done Comments Breast Cancer Screening 1950 DTaP,Tdap,and Td Vaccines (1 - Tdap) 1957 Pneumococcal Vaccine: 50+ Years (1 of 2 - PCV) 1969 Zoster Vaccines (1 of 2) 1969 RSV Immunization Patients 60+ Years Old (1 - Risk 60-74 years 1-dose series) 2010 Cholesterol Screening (Lipid Panel) 02/11/2022 Colorectal Cancer Screening: Colonoscopy 02/11/2022 Depression Screening 02/11/2022 Falls Risk Assessment 02/11/2022 Hepatitis C Screening 02/11/2022 Medicare Annual Wellness Visit 02/11/2022 Osteoporosis Screening (Bone Density Screening) 02/11/2022 Social Influencers of Health Screening 02/11/2022 Hypertension/CHF/CAD Annual BMP Blood Test 04/11/2023 COVID-19 Vaccine ( season) 2023 12/27/2021, 08/13/2021, 12/28/2020, Additional history exists Influenza Vaccine (#1) 2023 HIB Vaccines Aged Out No longer eligi ble based on patient's age to complete this topic HPV Vaccines Aged Out No longer eligi ble based on patient's age to complete this topic Hepatitis A Vaccines Aged Out No long er eligible based on patient's age to complete this topic Hepatitis B Vaccines Aged Out No long er eligible based on patient's age to complete this topic IPV Vaccines Aged Out No longer eligi ble based on patient's age to complete this topic MMR Vaccines Aged Out No longer eligi ble based on patient's age to complete this topic Meningococcal ACWY Vaccine Aged Out N o longer eligible based on patient's age to complete this topic Meningococcal B Vacine Aged Out No lo nger eligible based on patient's age to complete this topic RSV Immunization Patients Under 20 months Aged Out No longer eligible based on patient's age to complete this topic Varicella Vaccines Aged Out No longer eligible based on patient's age to complete this topic Insurance [facility]IC[facility] Advance Directives Documents on File Type Date Recorded Patient [employer] Technical Assistant Expl anation Health Care Decision (hx) 09/03/2015 AD CASSIDY DIRECTIVE Health Care Decision (hx) 09/03/2015 AD CASSIDY DIRECTIVE Health Care Decision (hx) 09/03/2015 AD CASSIDY DIRECTIVE Health Care Decision (hx) 09/03/2015 AD CASSIDY DIRECTIVE Health Care Decision (hx) 09/03/2015 AD CASSIDY DIRECTIVE Health Care Decision (hx) 09/03/2015 AD CASSIDY DIRECTIVE Health Care Decision (hx) 09/03/2015 AD CASSIDY DIRECTIVE Health Care Decision (hx) 09/03/2015 AD CASSIDY DIRECTIVE Health Care Decision (hx) 09/03/2015 AD CASSIDY DIRECTIVE Health Care Decision (hx) 09/03/2015 AD CASSIDY DIRECTIVE Health Care Decision (hx) 09/03/2015 AD CASSIDY DIRECTIVE Health Care Decision (hx) 09/03/2015 AD CASSIDY DIRECTIVE Health Care Decision (hx) 09/03/2015 AD CASSIDY DIRECTIVE Health Care Decision (hx) 09/03/2015 AD CASSIDY DIRECTIVE Health Care Decision (hx) 09/03/2015 AD CASSIDY DIRECTIVE Health Care Decision (hx) 09/03/2015 AD CASSIDY DIRECTIVE Health Care Decision (hx) 09/03/2015 AD CASSIDY DIRECTIVE Health Care Decision (hx) 09/03/2015 AD CASSIDY DIRECTIVE Health Care Decision (hx) 09/03/2015 AD CASSIDY DIRECTIVE Health Care Decision (hx) 09/03/2015 AD CASSIDY DIRECTIVE Health Care Decision (hx) 09/03/2015 AD CASSIDY DIRECTIVE Health Care Decision (hx) 09/03/2015 AD CASSIDY DIRECTIVE Health Care Decision (hx) 09/03/2015 AD CASSIDY DIRECTIVE Health Care Decision (hx) 09/03/2015 AD CASSIDY DIRECTIVE Care Teams E Commerce Strategist Relationship Specialty Start Date End Date Oneida Marroquin MD [address] [place] [address] PCP - General 09/02/15
--- OUTSIDE RECORDS SUMMARY | 2024-04-22 11:49 | XMS_ITS | Clinical Summary ---
Author Organization [facility], Address [address] [place] [address] Phone Care Team Providers Care Electric Vehicle Electrician Name Role Phone Stephanie Morales PA-C Primary Care Provider + Allergies Active Allergy Reactions Criticality Noted Date Comments Sulfamethoxazole-Trimethop rim Swelling,Other (see comments) High 10/01/2020 Tongue swelling Codeine Itching Medium 10/01/2020 Sulfamethoxazole Other (see comments) High 09/14/2021 Tongue swelling Trimethoprim Other (see comments) High 10/07/2020 Tongue swelling Medications tiZANidine (ZANAFLEX) 4 MG tablet Take 1 tablet by mouth if needed 1 Active Cholecalciferol (Vitamin D) 25 MCG (1000 UT) tablet Take 2,000 Units by mouth 1 (one) time each day Active aspirin (ST KWASI) 81 MG EC tablet Take 81 mg by mouth 1 (one) time each day Active folic acid (FOLVITE) 400 MCG tablet TAKE 1 TABLET (0.4 MG) BY ORAL ROUTE ONCE DAILY 2 Active calcium carbonate (TUMS) 500 MG chewable tablet Chew 1 tablet 1 (one) time each day Active B complex-vitamin C-folic acid (NEPHROCAPS) 1 MG capsule Take 1 capsule by mouth 1 (one) time each day Active valGANciclovir (VALCYTE) 450 MG tablet Take 450 mg by mouth 1 (one) time each day 3 Active levETIRAcetam (KEPPRA) 750 MG tablet Take 750 mg by mouth in the morning and 750 mg in the evening. Active doxazosin (Cardura) 4 MG tablet Take 1 tablet (4 mg total) by mouth every night 90 tablet 3 3 Active losartan (COZAAR) 100 MG tablet 3 Active atorvastatin (LIPITOR) 40 MG tabletIndication s:Hyperlipidemia , not otherwise specified Take 1 tablet (40 mg total) by mouth 1 (one) time each day 30 tablet 11 3 Active carvedilol (COREG) 6.25 MG tabletIndication s:Stage 5 chronic kidney disease (HCC),Essential hypertension Take 4 tablets (25 mg total) by mouth in the morning and 4 tablets (25 mg total) in the evening. Take with meals. 720 tablet 3 3 Active cinacalcet (SENSIPAR) 30 MG tablet Take 1 tablet (30 mg total) by mouth 1 (one) time each day 30 tablet 11 3 Active Additional Information Patient taking differently:30 mg Oral Daily, Pt is now taking them 3 times a weekMond, Sun and Sunday., Reported on 03/28/2023 furosemide (LASIX) 20 MG tabletIndication s:Edema, not otherwise specified Take 1 tablet (20 mg total) by mouth 1 (one) time each day 30 tablet 2 3 Active cetirizine (ZyrTEC) 5 MG chewable tablet Chew 1 tablet (5 mg total) 1 (one) time each day if needed for allergies 30 tablet 4 Active entecavir (BARACLUDE) 0.5 MG tablet Take 0.5 mg by mouth 1 (one) time each day 4 Active LORazepam (Ativan) 0.5 MG tabletIndication s:Insomnia, not otherwise specified Take 1 tablet (0.5 mg total) by mouth at night if needed for anxiety 30 tablet 4 Active Envarsus XR 1 MG tablet sustained-releas e 24 hourIndications: Kidney transplant status Take 3 mg by mouth 1 (one) time each day Take three 1 mg tablets along with one 0.75 mg tablet for a total daily dose of 3.75 mg 90 tablet 11 4 025 Active Envarsus XR 0.75 MG tablet sustained-releas e 24 hourIndications: Kidney transplant status Take 0.75 mg by mouth 1 (one) time each day Take one 0.75 mg tablet along with three 1 mg tablets for a total daily dose of 3.75 mg 30 tablet 11 4 025 Active tiZANidine (ZANAFLEX) 2 MG capsuleIndicatio ns:Spasm of back muscles Take 1 capsule (2 mg total) by mouth 3 (three) times a day if needed for muscle spasms 30 capsule 4 025 Active magnesium oxide 400 (240 Mg) MG tabletIndication s:Hypomagnesemia Take 400 mg by mouth in the morning and 400 mg in the evening. 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 12/01/2020 Dependence on renal dialysis 12/01/2020 Dyslipidemia 12/01/2020 End stage renal disease 12/01/2020 Gastroesophageal reflux disease 12/01/2020 Low back pain 12/01/2020 Sacroiliac disorder 12/01/2020 Type 2 diabetes mellitus 12/01/2020 Stage 5 chronic kidney disease 10/11/2020 Secondary hyperparathyroidism of renal origin Essential hypertension 10/01/2020 Immunizations Name Administration Dates Next Due Hepatitis B 10/17/2021,,08/12/2021,06/20/2021,03/18/2021,10/2020 Pfizer SARS-COV-2 12/27/2021,08/13/2021,12/29/19 21,05/07/2020,04/16/2020 Family History Medical History Relation Comments Hypertension Father Heart disease Mother Hypertension Mother Relation Status Comments Father Mother Social History Tobacco Use Types Packs/Day Years Used Date Smoking Tobacco: Never Smokeless Tobacco: Never Tobacco Cessation:Counseling Given: No Alcohol Use Standard Drinks/Week Comments Yes 0 (1 standard drink = 0.6 oz pure alcohol) Alcoholic Drinks/day: 1-2 drinks per day Comments Unknown Sex and Gender Information Value Date Recorded Sex Assigned at Not on file Legal Sex Female 5:00 PM EST Gender Identity Not on file Sexual Orientation Not on file Last Filed Vital Signs Vital Sign Reading Time Taken Comments Blood Pressure 130/70 06/13/2023 11:17 AM EDT Pulse 58 06/13/2023 11:17 AM EDT Temperature 36.3 ??C (97.4 ??F) 09/18/2022 8:57 AM ED T Respiratory Rate 16 03/20/2022 7:58 AM EST Oxygen Saturation 99% 06/13/2023 11:17 AM EDT Inhaled Oxygen Concentration - - Weight 63.5 kg (140 lb) 06/13/2023 11:17 AM EDT Height 154.9 cm (5' 1 ) 12/12/2022 9:10 AM EDT Body Mass Index 26.45 12/12/2022 9:10 AM EDT Plan of Treatment Health Maintenance Due Date Last Done Comments Breast Cancer Screening 1950 Pneumococcal Vaccine: 65+ Years (1 of 2 - PCV) 01/26/1956 Diabetes: Ophthalmology Exam 10/11/2020 Diabetes: Pedal Pulse Checked 10/11/2020 Diabetes: Sensory Foot Exam 10/11/2020 Diabetes: Visual Foot Exam 10/11/2020 Diabetes: Hemoglobin A1C 03/16/2022 022, 09/14/2021, 06/15/2021, Additional history exists Colonoscopy (Post-Transplant Patient) 09/13/2022 Mammogram (Post-Transplant Patient) 09/13/2022 Pelvic Exam (Post-Transplant Patient) 09/13/2022 Influenza Vaccine (#1) 2023 Hepatitis B Vaccine Aged Out 10/17/2021, 09/19/2021, 08/12/2021, Additional history exists No longer eligible based on patient's age to complete this topic Procedures Procedure Name Priority Date/Time Associated Diagnosis Comments SPECIAL CHEMISTRY Routine 12/14/2021 3:3 0 PM EDT from Last 3 Months or Most Recently Relevant to Health Maintenance Results * (ABNORMAL) SPECIAL CHEMISTRY (12/14/2021 3:30 PM EDT) Hemoglobin A1C 4.3(L) 4.8 - 5.9 % [facility] 12/14/2021 3:30 PM EDT 12/15/2021 7:16 AM EDT Narrative [facility] - 12/14/2021 3:30 PM EDT Unless otherwise specified, test(s) performed at: [facility], [address] [place] [address] EMT DRIVER: Eyal Steven M.D. For any questions, please call customer service at [email or web address] Resulting Agency Comment Specimen source: Blood Holland Carmen MD LAB BLOOD BANK TEST ORDERABLES F inal Result APS SPECTRA PVNMA from Last 3 Months or Most Recently Relevant to Health Maintenance Insurance [employer] Member Subscriber Plan / Payer (Ef fective 2015-Present) Name:Sandy Moeller Relation to Subscriber:Self Name:Sandy Moeller Payer ID:Not on file Type:Not on file Address: [place] [id number] [facility] MEDICARE Care Teams Electric Vehicle Electrician Relationship Specialty Start Date End Date Stephanie Morales PA-C [address] [place], [place] [phone] PCP - General Physician Molecular Pathologist 06/13/23
== END 2024-04-22 11:27 | disposition home or self-care (01) ==
PROVIDERS: PCP Physician Assistant; Visit Provider Internal Medicine Nephrology
DX: Z94.0 Kidney transplant status (principal); B34.8 Other viral infections of unspecified site; I10 Essential (primary) hypertension
CPT/HCPCS: 99214